=== PATIENT | female | born 1975 | race African-American/Black ===

== ENCOUNTER 2017-02-23 19:42 | Emergency (ER) | payer OTHER ==
[~2017-02-23] VITALS: Ht 172.7 cm; Wt 109.8 kg
--- NOTE | ~2017-02-23 | EKG ---
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
[~2017-02-23 19:42] MED LIST: AMOXICILLIN875 MG PO; CORTISPORIN OTI10 M2 OTIC; HYDROCODONE-ACE15 ML PO; MEDROLDOSEPACK PO; NOHOMEMEDICATIONS; NORCO 5-325 TA1 EACH PO; ULTRAM 50MG TAB50 MG PO
[2017-02-23] MEDS ORDERED: UNICOMPLEX M TA1 TA1 PO (20:16)
[2017-02-23 20:41] LABS: URINE BILIRUBIN NEGATIVE (Negative); URINE BLOOD NEGATIVE (Negative); URINE COLOR YELLOW; URINE GLUCOSE-RANDOM* NEGATIVE (Negative); URINE KETONES NEGATIVE (Negative); URINE LEUKOCYTES-REFLEX TRACE (Negative); URINE PROTEIN (DIPSTICK) NEGATIVE (Negative); URINE SPECIFIC GRAVITY >= 1.030 (1.003-1.035); URINE UROBILINOGEN 0.2 E.U./dl (0.2-1.0)
[2017-02-23 20:43] LABS: ABSOLUTE NEUTROPHILS 4.4 thou/uL (1.4-8.2); BASOPHILS 0.6 % (0.0-2.0); EOSINOPHILS 2.9 % (0.0-3.0); HEMATOCRIT 40.7 % (37.0-47.0); HEMOGLOBIN 13.5 gm/dL (12.0-15.0); LYMPHOCYTES 36.7 % (24.0-44.0); MANUAL DIFF NO; MCH 26.8 pg (26.0-34.0); MCHC 33.1 g/dL (28.0-37.0); MCV 80.9 fL (80.0-100.0); MONOCYTES 6.9 % (1.0-8.0); PLATELET COUNT 216 thou/uL (150-400); POLYS 52.9 % (36.0-66.0); RBC 5.03 mil/uL (4.20-5.00); RDW 14.3 % (10.5-14.5); WBC 8.3 thou/uL (4.0-11.0)
[2017-02-23 20:53] LABS: ANION GAP 14 mmol/L (7-16); BUN 12 mg/dL (7-18); CALCIUM 9.7 mg/dL (8.5-10.1); CHLORIDE 101 mmol/L (98-107); CO2 22 mmol/L (21-32); GLUCOSE 82 mg/dL (74-106); SODIUM 137 mmol/L (136-145)
[2017-02-23 21:00] LABS: ALBUMIN 4.2 g/dL (3.4-5.0); ALKALINE PHOSPHATASE 68 U/L (46-116); SGOT 33 U/L (15-37); SGPT 25 U/L (30-65); TOTAL BILIRUBIN 0.3 mg/dL (<0.1-1.0); TROPONIN-I < 0.04 ng/mL (<0.04-0.07)
[2017-02-23 22:05] VITALS: BP 114/70
== END 2017-02-23 22:16 | disposition home or self-care (01) ==
LOC: ER 19:42
PROVIDERS: Emergency Medicine
DX: E04.8 Other specified nontoxic goiter (principal); R19.7 Diarrhea, unspecified; R13.10 Dysphagia, unspecified; R10.13 Epigastric pain; Z90.49 Acquired absence of other specified parts of digestive tract; Z86.39 Personal history of other endocrine, nutritional and metabolic disease

== ENCOUNTER 2017-12-30 20:41 | Emergency (ER) | payer OTHER ==
[~2017-12-30] VITALS: Ht 172.7 cm; Wt 108.9 kg
--- NOTE | ~2017-12-30 | EKG ---
[address] [address] ELECTROCARDIOGRAM REPORT Name: MARIELOS MIKE Room #: DEP [facility]#: [id number] Admission: 12/30/17 Attend Phys: Discharge: 12/30/17 Date of : 77 Report #: [id number] THIS REPORT FOR: //name// 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
[~2017-12-30 20:41] MED LIST changes: +UNICOMPLEX M TA1 TA1 PO
[2017-12-30] MEDS ORDERED: SYNTHROID200 MCG PO (20:58)
[2017-12-30] MEDS ORDERED: VITAMIN D50000 UNIT PO (20:59)
[2017-12-30] MEDS ORDERED: VITAMIN B122500 MCG PO (20:59)
[2017-12-30 21:33] LABS: ABSOLUTE NEUTROPHILS 3.2 thou/uL (1.4-8.2); BASOPHILS 0.4 % (0.0-2.0); EOSINOPHILS 2.5 % (0.0-3.0); HEMATOCRIT 35.9 % (37.0-47.0); HEMOGLOBIN 11.9 gm/dL (12.0-15.0); LYMPHOCYTES 31.9 % (24.0-44.0); MCH 26.3 pg (26.0-34.0); MCHC 33.1 g/dL (28.0-37.0); MCV 79.4 fL (80.0-100.0); MONOCYTES 9.8 % (1.0-8.0); PLATELET COUNT 194 thou/uL (150-400); POLYS 55.4 % (36.0-66.0); RBC 4.52 mil/uL (4.20-5.00); RDW 14.4 % (10.5-14.5); WBC 5.7 thou/uL (4.0-11.0)
[2017-12-30 21:47] LABS: CALCIUM 9.3 mg/dL (8.5-10.1); POTASSIUM 3.5 mmol/L (3.5-5.1)
[2017-12-30] MEDS ORDERED: FLONASE 0.05%50 MCG NASAL (22:56)
[2017-12-30 23:16] VITALS: BP 136/86
== END 2017-12-30 23:17 | disposition home or self-care (01) ==
LOC: ER 20:41
PROVIDERS: Physician Assistant
DX: M54.2 Cervicalgia (principal); H92.02 Otalgia, left ear

== ENCOUNTER 2018-05-01 20:56 | Emergency (ER) | payer OTHER ==
[~2018-05-01] VITALS: Ht 172.7 cm; Wt 117.9 kg
[~2018-05-01 20:56] MED LIST changes: +FLONASE 0.05%50 MCG NASAL; +SYNTHROID200 MCG PO; +VITAMIN B122500 MCG PO; +VITAMIN D50000 UNIT PO
[2018-05-01] MEDS ORDERED: NAPROSYN500 MG PO (21:27)
[2018-05-01 22:03] VITALS: BP 175/99
== END 2018-05-01 22:07 | disposition home or self-care (01) ==
LOC: ER 20:56
DX: K11.5 Sialolithiasis (principal); K11.20 Sialoadenitis, unspecified; Z90.49 Acquired absence of other specified parts of digestive tract; Z98.890 Other specified postprocedural states; Z90.89 Acquired absence of other organs

== ENCOUNTER 2018-09-27 17:09 | Emergency (ER) | payer OTHER ==
[~2018-09-27] VITALS: Ht 172.7 cm; Wt 111.6 kg
[~2018-09-27 17:09] MED LIST changes: +NAPROSYN500 MG PO
[2018-09-27] MEDS ORDERED: NORCO 5-325 TA1 EACH PO (17:46)
[2018-09-27] MEDS ORDERED: MEDROL4 M1 PO (17:46)
[2018-09-27] MEDS ORDERED: CORTISPORIN OTI10 ML OTIC (17:46)
[2018-09-27 17:53] VITALS: BP 186/109
== END 2018-09-27 17:54 | disposition home or self-care (01) ==
LOC: ER 17:09
DX: H60.92 Unspecified otitis externa, left ear (principal); Z90.49 Acquired absence of other specified parts of digestive tract; Z98.890 Other specified postprocedural states

== ENCOUNTER 2020-09-04 18:10 | Emergency (ER) | payer OTHER ==
[~2020-09-04] VITALS: Ht 172.7 cm; Wt 106.1 kg
[~2020-09-04 18:10] MED LIST changes: +CORTISPORIN OTI10 ML OTIC; +MEDROL4 M1 PO
[2020-09-04 19:23] LABS: ABSOLUTE NEUTROPHILS 5.3 thou/uL (1.4-8.2); BASOPHILS 0.8 % (0.0-2.0); EOSINOPHILS 2.2 % (0.0-3.0); HEMOGLOBIN 13.6 gm/dL (12.0-15.0); LYMPHOCYTES 27.3 % (24.0-44.0); MCH 26.4 pg (26.0-34.0); MCHC 32.3 g/dL (28.0-37.0); MCV 81.8 fL (80.0-100.0); MONOCYTES 9.9 % (1.0-8.0); PLATELET COUNT 225 thou/uL (150-400); POLYS 59.8 % (36.0-66.0); RBC 5.13 mil/uL (4.20-5.00); RDW 14.2 % (10.5-14.5); WBC 8.9 thou/uL (4.0-11.0)
[2020-09-04 19:29] LABS: CALCIUM 10.4 mg/dL (8.5-10.1); CREATININE 1.2 mg/dL (0.6-1.0); POTASSIUM 3.8 mmol/L (3.5-5.1)
[2020-09-04 19:29] LABS: URINE BILIRUBIN NEGATIVE (Negative); URINE BLOOD TRACE (Negative); URINE CLARITY CLEAR; URINE COLOR YELLOW; URINE GLUCOSE-RANDOM* NEGATIVE (Negative); URINE KETONES NEGATIVE (Negative); URINE LEUKOCYTES-REFLEX NEGATIVE (Negative); URINE NITRITE-REFLEX NEGATIVE (Negative); URINE PROTEIN (DIPSTICK) NEGATIVE (Negative); URINE UROBILINOGEN 0.2 E.U./dl (0.2-1.0)
[2020-09-04 19:35] LABS: ALBUMIN 3.9 g/dL (3.4-5.0); TOTAL BILIRUBIN 0.4 mg/dL (0.2-1.0); TOTAL PROTEIN 8.5 g/dL (6.4-8.2)
[2020-09-05 00:26] VITALS: BP 119/71
== END 2020-09-05 00:27 | disposition home or self-care (01) ==
LOC: ER 18:10
PROVIDERS: Emergency Medicine
DX: K52.9 Noninfective gastroenteritis and colitis, unspecified (principal); Z79.899 Other long term (current) drug therapy; Z90.49 Acquired absence of other specified parts of digestive tract

== ENCOUNTER 2021-10-30 21:08 | Emergency (ER) | payer OTHER ==
[~2021-10-30] VITALS: Ht 172.7 cm; Wt 111.6 kg
[2021-10-30 23:18] LABS: ABSOLUTE NEUTROPHILS 4.7 thou/uL (1.4-8.2); BASOPHILS 0.5 % (0.0-2.0); EOSINOPHILS 0.1 % (0.0-3.0); HEMATOCRIT 35.6 % (37.0-47.0); HEMOGLOBIN 11.5 gm/dL (12.0-15.0); LYMPHOCYTES 4.1 % (24.0-44.0); MCHC 32.4 g/dL (28.0-37.0); MCV 80.3 fL (80.0-100.0); MONOCYTES 11.8 % (1.0-8.0); PLATELET COUNT 254 thou/uL (150-400); POLYS 83.5 % (36.0-66.0); RBC 4.43 mil/uL (4.20-5.00); RDW 15.5 % (10.5-14.5); WBC 5.6 thou/uL (4.0-11.0)
[2021-10-30 23:29] LABS: CALCIUM 9.6 mg/dL (8.5-10.1); CREATININE 1.1 mg/dL (0.6-1.0)
[2021-10-30 23:33] LABS: TOTAL BILIRUBIN 0.4 mg/dL (0.2-1.0); TOTAL PROTEIN 8.2 g/dL (6.4-8.2)
[2021-10-30 23:42] LABS: POTASSIUM 3.6 mmol/L (3.5-5.1)
[2021-10-31 04:00] VITALS: BP 121/99
== END 2021-10-31 04:01 | disposition home or self-care (01) ==
LOC: ER 21:08
PROVIDERS: Nurse Practitioner Family
DX: R10.31 Right lower quadrant pain (principal); R51.9 Headache, unspecified; R68.83 Chills (without fever); Z98.51 Tubal ligation status; Z98.890 Other specified postprocedural states; Z90.89 Acquired absence of other organs